=== PATIENT | female | born 1975 ===

== ENCOUNTER 2018-07-12 20:56 | Emergency (ER) | payer OTHER ==
[2018-07-12 21:48] VITALS: TEMP 98
--- NOTE | 2018-07-12 22:18 | ED PDOC ---
HPI: Abdomen Time Seen by Provider: 07/12/18 21:50 Chief Complaint (Nursing): Female Genitourinary Chief Complaint (Provider): pelvic pain History Per: Patient, Family (patient requesting to translate) History/Exam Limitations: no limitations Onset/Duration Of Symptoms: Days (2) Current Symptoms Are (Timing): Still Present Location Of Pain/Discomfort: Suprapubic Last Bowel Movement: Today Additional Complaint(s): 43 y/o female presents for evaluation of suprapubic abdominal pain x 2 days. Associated low back pain. Denies fever, nausea/vomiting, chest pain, changes in bowel movements, urinary symptoms, vaginal bleeding/discharge. No medications taken for relief thus far. Past Medical History Reviewed: Historical Data, Nursing Documentation, Vital Signs Vital Signs: Last Vital Signs Temp 98.0 F 07/12/18 21:47 Pulse 77 07/12/18 21:47 Resp 16 07/12/18 21:47 BP 156/90 H 07/12/18 21:47 Pulse Ox 100 07/12/18 21:47 - Medical History PMH: No Chronic Diseases - Surgical History Surgical History: No Surg Hx - Family History Family History: States: No Known Family Hx - Living Arrangements Living Arrangements: With Family - Home Medications Home Medications: Ambulatory Orders Medication Instructions Recorded Naproxen [Naprosyn] 500 mg PO Q12 PRN #14 tablet 07/13/18 - Allergies Allergies/Adverse Reactions: Allergies Allergy/AdvReac Type Severity Reaction Status Date / Time No Known Allergies Allergy Verified 07/12/18 21:46 Review of Systems ROS Statement: Except As Marked, All Systems Reviewed And Found Negative Genitourinary Female: Positive for: Pelvic Pain Musculoskeletal: Positive for: Back Pain Physical Exam - Reviewed Nursing Documentation Reviewed: Yes Vital Signs Reviewed: Yes - Physical Exam Appears: Positive for: Well, Non-toxic, No Acute Distress Head Exam: Positive for: ATRAUMATIC, NORMAL INSPECTION, NORMOCEPHALIC Skin: Positive for: Normal Color Eye Exam: Positive for: Normal appearance ENT: Positive for: Normal ENT Inspection Cardiovascular/Chest: Positive for: Regular Rate, Rhythm Respiratory: Positive for: Normal Breath Sounds Gastrointestinal/Abdominal: Positive for: Bowel Sounds, Soft, Tenderness (suprapubic) Back: Positive for: Muscle Spasm (bilateral lspine paravertebral tenderness). Negative for: L CVA Tenderness, R CVA Tenderness, Vertebral Tenderness, Decre ased ROM Extremity: Positive for: Normal ROM Neurologic/Psych: Positive for: Alert, Oriented (x3) - ECG O2 Sat by Pulse Oximetry: 100 - Progress ED Course And Treament: -upreg -udip -urinalysis -urine c&s -tv u/s -Toradol IM Date of service: 07/12/2018 History Suprapubic pain Comparison None available. Technique Transvaginal ultrasound. Findings Uterus Measures 10.2 x 5.3 x 7.1 cm. Anteverted. Normal in size and appearance. No fibroid or other mass lesion seen. Endometrium Fluid within endometrium. Cervix No cervical abnormality identified. Right ovary Measures 3.1 x 1.6 x 1.9 cm with the volume of 5 ml. No solid mass. Normal flow. Left ovary Measures 3.2 x 1.7 x 2.1 cm with the volume of 6 ml. No solid mass. Normal flow. Free fluid No significant free fluid noted. Other Findings None. Impression Normal uterus fluid within. Unremarkable ovaries Patient educated on findings, discharged with rx Naproxen Advised follow up with [facility] within 2-3 days Return precautions given Disposition - Clinical Impression Clinical Impression: Pelvic pain - Patient ED Disposition Is Patient to be Admitted: No Counseled Patient/Family Regarding: Studies Performed, Diagnosis, Need For Followup, Rx Given - Disposition Disposition: Routine/Home Disposition Time: 00:22 Condition: IMPROVED Prescriptions: Naproxen [Naprosyn] 500 mg PO Q12 PRN #14 tablet PRN Reason: Pain, Moderate (4-7) Instructions: Acute Pelvic Pain Forms: [employer] (Thai) Print Language: FAROESE
[2018-07-12 22:46] LABS: SQUAMOUS EPITHIAL 6 /hpf (0-5); URINE BILIRUBIN NEGATIVE (NEGATIVE); URINE BLOOD NEGATIVE (NEGATIVE); URINE CLARITY SLIGHTY-CLOUDY (Clear); URINE COLOR YELLOW (YELLOW); URINE GLUCOSE (UA) NEG (NEGATIVE); URINE LEUKOCYTE ESTERASE SMALL Leu/uL (Negative); URINE PROTEIN NEGATIVE (NEGATIVE); URINE UROBILINOGEN 0.2-1.0 mg/dL (0.2-1.0)
[2018-07-13 00:29] VITALS: BP 116/69; PULSE 66; RESP 18; O2SAT 98
--- NOTE | 2018-07-13 13:46 | US ---
Date of service: 07/12/2018 HISTORY: suprapubic pain COMPARISON: 10/18/2017 TECHNIQUE: Transvaginal only. Real -time technique with 2D, duplex and color Doppler FINDINGS: UTERUS: Measures 5.3 x 7.1 x 10.2 cm. Normal in size and appearance. No fibroid or other mass lesion seen. ENDOMETRIUM: Redemonstration intrauterine contraceptive device centrally within the endometrial canal. CERVIX: No cervical abnormality identified.Incidental finding: Nabothian cysts the largest measures less than 1 cm RIGHT OVARY: Measures 1.6 x 1.9 x 3.1 cm. No solid mass. Normal flow. LEFT OVARY: Measures 1.7 x 2.1 x 3.2 cm. No solid mass. Normal flow. FREE FLUID: No significant free fluid noted. OTHER FINDINGS: None. IMPRESSION: Stable position of IUD centrally within endometrial echo complex No change compared to the prior study.
== END 2018-07-13 00:32 | disposition home or self-care (01) ==
LOC: H.ER 20:56
DX: R10.2 Pelvic and perineal pain (principal); M54.5 Low back pain
CPT/HCPCS: 76830; 81003; 81025; 87086; 96372; 99283; J1885